=== PATIENT | female | born 1965 | race Caucasian/White ===

== ENCOUNTER 2020-10-13 09:03 | Emergency (ER) | payer BC ==
[2020-10-13] MEDS ORDERED: ZITHROMAX250 MG PO (14:42)
== END 2020-10-13 14:51 | disposition home or self-care (01) ==
LOC: ER1 09:03
DX: U07.1 COVID-19 (principal); J12.82 Pneumonia due to coronavirus disease 2019; I10 Essential (primary) hypertension; Z88.5 Allergy status to narcotic agent
CPT/HCPCS: 71045; 99285; U0002